=== PATIENT | female | born 1960 | race Caucasian/White ===

== ENCOUNTER 2017-09-14 18:00 | Emergency (ER) | payer BC ==
[2017-09-14 18:26] VITALS: TEMP 97.9; BMI 42.9
--- NOTE | 2017-09-14 18:27 | PDOC ---
History of Present Illness - General Chief Complaint: Syncope/Near Syncope Stated Complaint: Syncope/Near Syncope Time Seen by Provider: 09/14/17 18:16 - History of Present Illness Initial Comments: 09/14/17 18:18 57 yo F with no significant pmh who presents with syncope. Past History - Past Medical History Allergies/Adverse Reactions: Allergies Allergy/AdvReac Type Severity Reaction Status Date / Time acetaminophen [From Midol] AdvReac Nausea Verified 02/22/16 02:26 erythromycin base AdvReac Nausea Verified 02/22/16 02:26 [From E-Mycin] pamabrom [From Midol] AdvReac Nausea Verified 02/22/16 02:26 Home Medications: Ambulatory Orders Fexofenadine HCl [Earnestine] 180 mg PO DAILY 10/16/15 - Surgical History Cholecystectomy: Yes - Suicide/Smoking/Psychosocial Hx Smoking Status: No Smoking History: Never smoked Number of Cigarettes Smoked Daily: 0 Hx Alcohol Use: No Drug/Substance Use Hx: No Substance Use Type: None *DC/Admit/Observation/Transfer - Referrals Referrals: Yasmine Soria MD [Primary Care Provider] - - Patient Instructions - Post Discharge Activity
[2017-09-14] MEDS ORDERED: SODIUM CHLORIDE 1,000 ML IV STA ×2 (18:41)
[2017-09-14] MEDS ORDERED: ONDANSETRON 4 MG/2 ML VIAL IVPUSH ONE ×2 (18:42→21:05)
[2017-09-14] MEDS ORDERED: ONDANSETRON 4 MG/2 ML VIAL ONE ×2 (18:43→21:20)
[2017-09-14] MEDS ORDERED: FAMOTIDINE 20 MG/50 ML IVPB 20 MG/50 ML MG IVPB ONE (18:43)
[2017-09-14] MEDS ORDERED: FAMOTIDINE IV 20 MG/12 ML VIAL IVPUSH SCH (18:45)
--- NOTE | 2017-09-14 18:58 | PDOC ---
History of Present Illness - History of Present Illness Initial Comments: 09/14/17 18:56 Ms. Marroquin is a 57 yo female w/ pmh of hypotension and previous visit for syncope after viral illness course who presents following syncopal episode today after 2 days of nausea, vomiting, and diarrhea. Ms. Marroquin denies any bloody vomit or diarrhea and has otherwise been feeling ok. The patient denies chest pain, shortness of breath, headache and dizziness. Denies fever, chills, nausea, vomit, diarrhea and constipation. Denies dysuria, frequency, urgency and hematuria. Allergies: Acetaminophen, Erythromycin <Polo Black - Last Filed: 09/14/17 21:08> <Carmelo Molina - Last Filed: 09/14/17 21:25> - General Chief Complaint: Syncope/Near Syncope Stated Complaint: Syncope/Near Syncope Time Seen by Provider: 09/14/17 18:16 Past History - Past Medical History COPD: No - Surgical History Cholecystectomy: Yes - Suicide/Smoking/Psychosocial Hx Smoking Status: No Smoking History: Never smoked Have you smoked in the past 12 months: No Number of Cigarettes Smoked Daily: 0 Information on smoking cessation initiated: No Hx Alcohol Use: No Drug/Substance Use Hx: No Substance Use Type: None <Polo Black - Last Filed: 09/14/17 21:08> <Carmelo Molina - Last Filed: 09/14/17 21:25> - Past Medical History Allergies/Adverse Reactions: Allergies Allergy/AdvReac Type Severity Reaction Status Date / Time acetaminophen [From Midol] AdvReac Nausea Verified 09/14/17 18:36 erythromycin base AdvReac Nausea Verified 09/14/17 18:36 [From E-Mycin] pamabrom [From Midol] AdvReac Nausea Verified 09/14/17 18:36 Home Medications: Ambulatory Orders Fexofenadine HCl [Earnestine] 180 mg PO DAILY 10/16/15 Ondansetron [Ondansetron Odt] 8 mg PO Q6H PRN #8 tab.rapdis 09/14/17 Review of Systems - Review of Systems Comments:: 09/14/17 19:17 GENERAL/CONSTITUTIONAL: +Subjective chills. No weakness. HEAD, EYES, EARS, NOSE AND THROAT: No change in vision. No ear pain or discharge. No sore throat. CARDIOVASCULAR: No chest pain or shortness of breath RESPIRATORY: No cough, wheezing, or hemoptysis. GASTROINTESTINAL: +nausea with NBNB vomit, diarrhea. No constipation. GENITOURINARY: No dysuria, frequency, or change in urination. MUSCULOSKELETAL: No joint or muscle swelling or pain. No neck or back pain. SKIN: No rash NEUROLOGIC: No headache, vertigo, loss of consciousness, or change in strength/ sensation. ENDOCRINE: No increased thirst. No abnormal weight change HEMATOLOGIC/LYMPHATIC: No anemia, easy bleeding, or history of blood clots. ALLERGIC/IMMUNOLOGIC: No hives or skin allergy. <Polo Black - Last Filed: 09/14/17 21:08> *Physical Exam - Vital Signs Last Vital Signs Temp Pulse Resp BP Pulse Ox 97.9 F 84 18 137/85 99 09/14/17 18:14 09/14/17 18:14 09/14/17 18:14 09/14/17 18:14 09/14/17 18:14 - Physical Exam Comments: 09/14/17 21:08 GENERAL: Awake, alert, and fully oriented, in no acute distress HEAD: No signs of trauma, normocephalic, atraumatic EYES: PERRLA, EOMI, sclera anicteric, conjunctiva clear ENT: Auricles normal inspection, hearing grossly normal, nares patent, oropharynx clear without exudates. Moist mucosa NECK: Normal ROM, supple, no lymphadenopathy, JVD, or masses LUNGS: No distress, speaks full sentences, clear to auscultation bilaterally HEART: Regular rate and rhythm, normal S1 and S2, no murmurs, rubs or gallops, peripheral pulses normal and equal bilaterally. ABDOMEN: +Patient diffusely tender to palpation. Soft, normoactive bowel sounds. No guarding, no rebound. No masses EXTREMITIES: Normal inspection, Normal range of motion, no edema. No clubbing or cyanosis. NEUROLOGICAL: Cranial nerves II through XII grossly intact. Normal speech, normal gait, no focal sensorimotor deficits SKIN: Warm, Dry, normal turgor, no rashes or lesions noted. <Polo Black - Last Filed: 09/14/17 21:08> - Vital Signs Last Vital Signs Temp Pulse Resp BP Pulse Ox 97.9 F 84 18 137/85 99 09/14/17 18:14 09/14/17 18:14 09/14/17 18:14 09/14/17 18:14 09/14/17 18:14 <Carmelo Molina - Last Filed: 09/14/17 21:25> ED Treatment Course - LABORATORY CBC & Chemistry Diagram: 09/14/17 18:50 09/14/17 18:50 <Polo Black - Last Filed: 09/14/17 21:08> - LABORATORY CBC & Chemistry Diagram: 09/14/17 18:50 09/14/17 18:50 - ADDITIONAL ORDERS Additional order review: Laboratory Results 09/14/17 09/14/17 09/14/17 18:50 18:50 18:50 Sodium 140 Potassium 4.1 Chloride 106 Carbon Dioxide 26 Anion Gap 8 BUN 16 Creatinine 0.8 Creat Clearance w eGFR > 60 Random Glucose 126 H Lactic Acid 1.2 Calcium 8.8 Total Bilirubin 1.7 H D AST 47 H D ALT 87 H D Alkaline Phosphatase 81 D Creatine Kinase 135 Troponin I < 0.02 Total Protein 7.9 Albumin 3.8 09/14/17 18:50 RBC 5.24 H MCV 89.1 MCHC 33.5 RDW 13.0 MPV 8.7 Neutrophils % 81.4 Lymphocytes % 10.6 Monocytes % 6.8 Eosinophils % 0.7 Basophils % 0.5 - Medications Given in the ED: ED Medications Discontinued Medications Generic Name Dose Route Start Last Admin Trade Name Freq PRN Reason Stop Dose Admin Sodium Chloride 1,000 mls @ 1,000 mls/hr 09/14/17 18:41 09/14/17 19:03 Normal Saline - IV 09/14/17 19:40 1,000 mls/hr ASDIR STA Administration Sodium Chloride 1,000 mls @ 1,000 mls/hr 09/14/17 18:41 09/14/17 19:03 Normal Saline - IV 09/14/17 19:40 1,000 mls/hr ASDIR STA Administration Ondansetron HCl 8 mg 09/14/17 18:42 09/14/17 19:03 Zofran Injection IVPUSH 09/14/17 18:43 8 mg ONCE ONE Administration Ondansetron HCl 4 mg 09/14/17 21:05 09/14/17 21:23 Zofran Injection IVPUSH 09/14/17 21:06 4 mg ONCE ONE Administration <Carmelo Molina - Last Filed: 09/14/17 21:25> Medical Decision Making - Medical Decision Making 09/14/17 21:09 Patient presented post syncopal episode complaining of nausea and vomiting. Suspect viral illness as etiology of n/v/d which in turn was origin of syncopal episode. Patient given zofran with resolution of nausea and abdominal pain. Labs grossly unconcerning - patient appears to be volume depleted. Patient received 2 liters of NS and was then able to ambulate and successfully pass PO challenge. Will send patient home with Rx for zofran for any continued nausea. Discussed patient returning if any increased n/v/d or unable to successfully keep food / liquids down. Patient verbalized understanding. 09/14/17 21:12 <Polo Black - Last Filed: 09/14/17 21:08> *DC/Admit/Observation/Transfer <Polo Black - Last Filed: 09/14/17 21:08> <Carmelo Molina - Last Filed: 09/14/17 21:25> Diagnosis at time of Disposition: Dehydration, Viral gastroenteritis - Discharge Dispostion Disposition: HOME - Prescriptions Prescriptions: Ondansetron [Ondansetron Odt] 8 mg PO Q6H PRN #8 tab.rapdis PRN Reason: Nausea And/Or Vomiting - Referrals Referrals: Yasmine Soria MD [Primary Care Provider] - - Patient Instructions Printed Discharge Instructions: DI for Syncope in Adults (Fainting), DI for Viral Gastroenteritis -- Adult - Post Discharge Activity Forms/Work/School Notes: Back to Work
[2017-09-14 19:01] LABS: BASOPHIL 0.5 % (0-2.0); EOSINOPHIL 0.7 % (0-4.5); MCH 29.8 pg (25.7-33.7); MCHC 33.5 g/dl (32.0-36.0); MEAN CELL VOLUME 89.1 fl (80-96); MEAN PLT VOLUME 8.7 fl (7.5-11.1); NEUTROPHILS 81.4 % (42.8-82.8); PLATELET COUNT 259 K/MM3 (134-434); WHITE BLOOD COUNT 11.3 K/mm3 (4.0-10.0)
[2017-09-14 19:32] LABS: ALBUMIN 3.8 g/dl (3.4-5.0); ALK PHOS 81 U/L (45-117); ANION GAP 8 (8-16); BILIRUBIN,TOTAL 1.7 mg/dL (0.2-1.0); CALCIUM 8.8 mg/dL (8.5-10.1); CO2 26 mmol/L (21-32); CREATININE 0.8 mg/dL (0.55-1.02); GLUCOSE,RANDOM 126 mg/dL (74-106); SGPT/ALT 87 U/L (12-78); TOT PROT 7.9 g/dl (6.4-8.2)
[2017-09-14 19:34] LABS: SGOT/AST 47 U/L (15-37)
[2017-09-14 19:43] LABS: TROPONIN I < 0.02 ng/ml (0.00-0.05)
[2017-09-14 19:45] LABS: CPK 135 IU/L (26-192)
--- NOTE | 2017-09-14 20:47 | PDOC ---
Attending Attestation - Resident Resident Name: Polo Black - ED Attending Attestation I have performed the following: I have examined & evaluated the patient, The case was reviewed & discussed with the resident, I agree w/resident's findings & plan, Exceptions are as noted - HPI HPI: 09/14/17 20:42 57 year old female with no PMH who presents to the emergency department s/p syncopal episode earlier today and 2 days of nausea, vomiting, and diarrhea. Pt states that she has had sick contacts at home with similar symptoms. She endorses multiple episodes of nonbilious, nonbloody vomiting, as well as several episodes of watery brown stool. Denies F/C. She states that today, she fainted while vomiting. Denies headstrike. Was seated at the time and did not fall to the floor. She denies having any chest pain, shortness of breath, or palpitations prior to or after the episode. Currently she reports that she feels weak but otherwise denies any complaints. - Physicial Exam PE: 09/14/17 20:54 "GENERAL: Awake, alert, and fully oriented, in no acute distress HEAD: No signs of trauma EYES: PERRLA, EOMI, sclera anicteric, conjunctiva clear ENT: Auricles normal inspection, hearing grossly normal, nares patent, oropharynx clear without exudates. Moist mucosa NECK: Nontender, no stepoffs, Normal ROM, supple, no lymphadenopathy, JVD, or masses LUNGS: Breath sounds equal, clear to auscultation bilaterally. No wheezes, and no crackles HEART: Regular rate and rhythm, normal S1 and S2, no murmurs, rubs or gallops ABDOMEN: Soft, nontender, normoactive bowel sounds. No guarding, no rebound. No masses EXTREMITIES: Normal range of motion, no edema. No clubbing or cyanosis. No cords, erythema, or tenderness NEUROLOGICAL: Cranial nerves II through XII intact. 5/5 strength and sensation in all extremities, Normal speech, normal gait SKIN: Warm, Dry, normal turgor, no rashes or lesions noted. " - Medical Decision Making 09/14/17 20:54 57 F with N/V/D and syncopal episode. Syncope likely vasovagal in the context of vomiting. Pt with normal vitals. Normal EKG. Pt may also be dehydrated due to volume losses from vomiting and diarrhea. - Labs - IVF, GI cocktail - Reassess 09/14/17 21:17 CBC,CMP WBC 11.3 K/mm3 (4.0-10.0) H D 09/14/17 18:50 RBC 5.24 M/mm3 (3.60-5.2) H 09/14/17 18:50 Hgb 15.6 GM/dL (10.7-15.3) H 09/14/17 18:50 Hct 46.7 % (32.4-45.2) H 09/14/17 18:50 MCV 89.1 fl (80-96) 09/14/17 18:50 MCH 29.8 pg (25.7-33.7) 09/14/17 18:50 MCHC 33.5 g/dl (32.0-36.0) 09/14/17 18:50 RDW 13.0 % (11.6-15.6) 09/14/17 18:50 Plt Count 259 K/MM3 (134-434) D 09/14/17 18:50 MPV 8.7 fl (7.5-11.1) 09/14/17 18:50 Neutrophils % 81.4 % (42.8-82.8) 09/14/17 18:50 Lymphocytes % 10.6 % (8-40) 09/14/17 18:50 Monocytes % 6.8 % (3.8-10.2) 09/14/17 18:50 Eosinophils % 0.7 % (0-4.5) 09/14/17 18:50 Basophils % 0.5 % (0-2.0) 09/14/17 18:50 Sodium 140 mmol/L (136-145) 09/14/17 18:50 Potassium 4.1 mmol/L (3.5-5.1) 09/14/17 18:50 Chloride 106 mmol/L (98-107) 09/14/17 18:50 Carbon Dioxide 26 mmol/L (21-32) 09/14/17 18:50 Anion Gap 8 (8-16) 09/14/17 18:50 BUN 16 mg/dL (7-18) 09/14/17 18:50 Creatinine 0.8 mg/dL (0.55-1.02) 09/14/17 18:50 Creat Clearance w eGFR > 60 (>60) 09/14/17 18:50 Random Glucose 126 mg/dL (74-106) H 09/14/17 18:50 Lactic Acid 1.2 mmol/L (0.4-2.0) 09/14/17 18:50 Calcium 8.8 mg/dL (8.5-10.1) 09/14/17 18:50 Total Bilirubin 1.7 mg/dL (0.2-1.0) H D 09/14/17 18:50 AST 47 U/L (15-37) H D 09/14/17 18:50 ALT 87 U/L (12-78) H D 09/14/17 18:50 Alkaline Phosphatase 81 U/L (45-117) D 09/14/17 18:50 Creatine Kinase 135 IU/L (26-192) 09/14/17 18:50 Troponin I < 0.02 ng/ml (0.00-0.05) 09/14/17 18:50 Total Protein 7.9 g/dl (6.4-8.2) 09/14/17 18:50 Albumin 3.8 g/dl (3.4-5.0) 09/14/17 18:50 Pt reassessed - now tolerating PO without vomiting. Abdominal exam benign. Vitals normal. Pt has been on monitor for 3 hours without any events. Pt with no additional syncopal episodes in ER. Clinically stable for DC at this time. Heart Score/ECG Review - ECG Impressions Comment:: 09/14/17 20:55 NSR, no KP/STDs, no TWIs, ND 202, QTc 437, slight L axis deviation
[2017-09-14 21:26] VITALS: BP 121/80; PULSE 80
--- NOTE | 2017-09-15 10:06 | EKG ---
Test Reason : Blood Pressure : / mmHG Vent. Rate : 085 BPM Atrial Rate : 085 BPM P-R Int : 202 ms QRS Dur : 090 ms QT Int : 368 ms P-R-T Axes : 039 -28 029 degrees QTc Int : 437 ms POOR DATA QUALITY, INTERPRETATION MAY BE ADVERSELY AFFECTED NORMAL SINUS RHYTHM MODERATE VOLTAGE CRITERIA FOR LVH, MAY BE NORMAL VARIANT POOR R WAVE PROGRESSION WHEN COMPARED WITH ECG OF 22-FEB-2016 02:50, NO SIGNIFICANT CHANGE WAS FOUND Confirmed by RUSTAM ARCOS MD ([id number]) on 09/15/2017 10:06:00 AM Referred By: Confirmed By:RUSTAM ARCOS MD
== END 2017-09-14 21:34 | disposition home or self-care (01) ==
LOC: JER 18:00
PROC: 3E033GC Introduction of Other Therapeutic Substance into Peripheral Vein, Percutaneous Approach (ICD-10-PCS; principal; 2017-09-14)
PROC: 3E033GC Introduction of Other Therapeutic Substance into Peripheral Vein, Percutaneous Approach (ICD-10-PCS; 2017-09-14)
DX: A08.4 Viral intestinal infection, unspecified (principal); B97.89 Other viral agents as the cause of diseases classified elsewhere; E86.0 Dehydration
CPT/HCPCS: 36415; 80053; 82550; 83605; 84484; 85025; 93005; 93010; 99285-25

== ENCOUNTER 2017-11-10 07:01 | Emergency (ER) | payer BC ==
[2017-11-10 07:18] VITALS: BMI 42.9
--- NOTE | 2017-11-10 07:46 | PDOC ---
History of Present Illness - General Chief Complaint: Syncope/Near Syncope Stated Complaint: SYNCOPY - History of Present Illness Initial Comments: 57 year old female with history of seasonal allergies presenting with nausea, vomiting, and diarrhea since early this AM. States that she had some severe belching at approximately 2 AM directly after which she began experiencing bilious, non-bloody vomiting (x2), and dark brown but non-bloody diarrhea (x6). States that this has happened a few times since August and she recently underwent an Endoscopy by Dr. Gupta at [facility] on 11/07/17 (3 days prior) which was significant for a small esophageal polyp that was biopsied and GERD for which she was started on Nexium. She does admit that she has a very sensitive stomach and does not eat spicy food because of that. She had a cholecystectomy 21 ears ago and two NSVDs. Her last colonoscopy was in 2011 which was fine. Denies SOB, chest pain, urinary symptoms, fevers, chills, or focal neurological symptoms. She has syncopized under similar circumstances in the [facility] but has not syncopized today. Denies new meds since the start of these symptoms, EtoH, smoking, or other drug use. 11/10/17 08:17 Past History - Past Medical History Allergies/Adverse Reactions: Allergies Allergy/AdvReac Type Severity Reaction Status Date / Time acetaminophen [From Midol] AdvReac Nausea Verified 11/10/17 07:14 erythromycin base AdvReac Nausea Verified 11/10/17 07:14 [From E-Mycin] pamabrom [From Midol] AdvReac Nausea Verified 11/10/17 07:14 Home Medications: Ambulatory Orders Fexofenadine HCl [Earnestine] 180 mg PO DAILY 10/16/15 Ondansetron [Zofran *Odt*] 8 mg PO Q6H PRN #20 tab.rapdis 11/10/17 Cardiac Disorders: (syncope) COPD: No - Surgical History Cholecystectomy: Yes - Suicide/Smoking/Psychosocial Hx Smoking Status: No Smoking History: Never smoked Have you smoked in the past 12 months: No Number of Cigarettes Smoked Daily: 0 Information on smoking cessation initiated: No Hx Alcohol Use: No Drug/Substance Use Hx: No Substance Use Type: None Review of Systems - Review of Systems Constitutional: No: Chills, Diaphoresis, Fever HEENTM: No: Blurred Vision Respiratory: No: Cough, Shortness of Breath, Stridor, Wheezing, Productive cough Cardiac (ROS): Yes: Lightheadedness, Syncope. No: Irregular Heart Rate, Palpitations ABD/GI: Yes: Diarrhea, Nausea, Vomiting. No: Blood Streaked Bowels : No: Burning, Dysuria, Discharge, Hematuria Musculoskeletal: No: Back Pain, Joint Pain Integumentary: No: Bruising, Change in Color, Lesions *Physical Exam - Vital Signs Last Vital Signs Temp Pulse Resp BP Pulse Ox 97.8 F 69 20 150/77 99 11/10/17 07:15 11/10/17 07:15 11/10/17 07:15 11/10/17 07:15 11/10/17 07:15 - Physical Exam General Appearance: Yes: Nourished, Appropriately Dressed, Apparent Distress HEENT: positive: EOMI, JOSE DAVID, Normal ENT Inspection, Normal Voice Neck: positive: Trachea midline, Normal Thyroid, Supple. negative: Tender, Rigid Respiratory/Chest: positive: Lungs Clear, Normal Breath Sounds. negative: Chest Tender, Respiratory Distress, Accessory Muscle Use Cardiovascular: positive: Regular Rhythm, Regular Rate Gastrointestinal/Abdominal: positive: Normal Bowel Sounds, Tender (diffuse upper abdominal trenderness but epigastric > the rest), Flat, Soft Musculoskeletal: positive: Normal Inspection Extremity: positive: Normal Capillary Refill, Normal Inspection, Normal Range of Motion. negative: Tender Integumentary: positive: Normal Color, Dry, Warm Neurologic: positive: Fully Oriented, Alert, Normal Mood/Affect, Normal Response , Motor Strength 5/5 ED Treatment Course - LABORATORY CBC & Chemistry Diagram: 11/10/17 08:43 11/10/17 11:15 Medical Decision Making - Medical Decision Making 57 year old female with recent endoscopy (significant for one polyp and GERD) with multiple ED presentations for nausea, vomiting, and diarrhea presenting again with this aforementioned symptom triad. The etiology for this presentation is unclear as she has had a clean colonoscopy in 2012 a recent endoscopy that wasn't significant for any obvious causative agent and she does not have cardiac risk factors. She has not had a CT of her abdomen. Given negative scopes and good health otherwise, this may be a Gi sensitivity reaction vs. IBS vs. IBD. She did not syncopize this time but she has in the past while coughing/ wretching which paints a picture of a vasovagal syncope in the setting of dehydration typically. Will get CBC, CMP, lipase, EKG, give 1L NS , give zofran, and give pepcid. 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 11/10/17 08:52 CBC WNL, CMP hemolyzed, abdominal tenderness improved but now focal in LLQ. Will CT scan abd/pelvis with IV contrast pending CMP lab results. 11/10/17 11:28 CT scan negative for any pathology. Spoke to Dr. Gupta's office x 2 without response so will DC patient with PMD follow up within 2-3 days, GI follow up, and cards follow up. We do maintain that her previous syncopal episodes were due to vasovagal syncope in the setting of valsalva with dehydration during cough/ vomiting. However, she deserves cards follow up for this. The etiology of her GI symptoms however is unclear and needs to be further evaluated by GI ( IBS vs. IBD). 11/10/17 14:32 *DC/Admit/Observation/Transfer Diagnosis at time of Disposition: Gastroenteritis - Discharge Dispostion Disposition: HOME Condition at time of disposition: Improved Admit: No - Prescriptions - Referrals - Patient Instructions - Post Discharge Activity
[2017-11-10] MEDS ORDERED: SODIUM CHLORIDE 0.9% 1000 ML INFUS.BAG IV ONE (08:04)
[2017-11-10] MEDS ORDERED: ONDANSETRON 4 MG/2 ML VIAL IVPUSH ONE (08:05)
--- NOTE | 2017-11-10 08:06 | PDOC ---
Attending Attestation - HPI HPI: 11/10/17 09:36 The patient is a 57 year old female, with a significant past medical history of GERD (s/p endoscopy [address] Carbajal), who presents to the emergency department with severe belching, nausea, vomiting, diarrhea, and abdominal pain. She states she has been experiencing these symptoms intermittently since August 2017. She reports the nausea, vomiting, and diarrhea came on at about 2AM this morning. She reports about 2 episodes of dark green emesis. She reports a few episodes of watery non bloody or tarry diarrhea. She denies hematemesis. She reports the abdominal pain as diffuse cramping, but states it's worse in the epigastric area. She states she has fainted in the past from her current symptoms. She has had these symptoms 4 times in the past and these symptoms are why she had an endoscopy 4 days ago. She denies syncope today, but reportedly feels lightheaded which prompted her ED visit this morning. She denies chest pain, shortness of breath, headache and dizziness. She denies fever, chills, and constipation. She denies dysuria, frequency, urgency and hematuria. Allergies: Acetaminophen, Erythromycin Past surgical history: cholecystectomy PCP: Dr. Drew Soria - Physicial Exam PE: 11/10/17 09:36 GENERAL: Awake, alert, and fully oriented, in no acute distress HEAD: No signs of trauma EYES: PERRLA, EOMI, sclera anicteric, conjunctiva clear ENT: Auricles normal inspection, hearing grossly normal, nares patent, oropharynx clear without exudates. dry MM NECK: Normal ROM, supple, no lymphadenopathy, JVD, or masses LUNGS: Breath sounds equal, clear to auscultation bilaterally. No wheezes, and no crackles HEART: Regular rate and rhythm, normal S1 and S2, no murmurs, rubs or gallops ABDOMEN: (+) diffuse tenderness most prominent to epigastric region Soft, normoactive bowel sounds. No guarding, no rebound. No masses EXTREMITIES: Normal range of motion, no edema. No clubbing or cyanosis. No cords, erythema, or tenderness BACK: No midline spinal tenderness in cervical/thoracic/lumbar region NEUROLOGICAL: Normal speech, cranial nerves intact, negative pronator drift, 5/ 5 strength in all 4 extremities, normal sensation to light touch in all 4 extremities, normal cerebellar exam, normal gait, normal reflexes and tone SKIN: Warm, Dry, normal turgor, no rashes or lesions noted. - Medical Decision Making 11/10/17 08:59 Documentation prepared by Zuleima Olmos, acting as certified ophthalmic medical technician for Brenna Morrissey MD <Zuleima Olmos - Last Filed: 11/10/17 09:36> - Resident Resident Name: Sonia Ruvalcaba - ED Attending Attestation I have performed the following: I have examined & evaluated the patient, The case was reviewed & discussed with the resident, I agree w/resident's findings & plan, Exceptions are as noted - Medical Decision Making 11/10/17 09:05 57-year-old female with a history of episodic nausea, vomiting, and diarrhea, currently being worked up gastroenterology presents with nausea, vomiting, diarrhea. Vitals are unremarkable. Exam remarkable for epigastric tenderness to palpation and dry mucous membranes. Given recent endoscopy 4 days ago we'll obtain an upright x-ray to evaluate for pneumoperitoneum or dilated bowel loops given bilious emesis. We'll also obtain labs and basic blood work and give antibiotics for nausea control. Will also rehydrate patient with fluids and reassess. Laboratory Tests 11/10/17 11/10/17 11/10/17 08:43 08:43 08:43 WBC 12.6 H RBC 5.15 Hgb 15.0 Hct 46.2 H MCV 89.7 MCH 29.0 MCHC 32.4 RDW 13.5 Plt Count 243 MPV 8.4 Neutrophils % 73.7 Lymphocytes % 17.4 D Monocytes % 6.8 Eosinophils % 1.4 D Basophils % 0.7 Sodium Cancelled Cancelled Potassium Cancelled Cancelled Chloride Cancelled Cancelled Carbon Dioxide Cancelled Cancelled Anion Gap Cancelled Cancelled BUN Cancelled Cancelled Creatinine Cancelled Cancelled Creat Clearance w eGFR Cancelled Cancelled Random Glucose Cancelled Cancelled Calcium Cancelled Cancelled Total Bilirubin Cancelled Cancelled AST Cancelled Cancelled ALT Cancelled Cancelled Alkaline Phosphatase Cancelled Cancelled Total Protein Cancelled Cancelled Albumin Cancelled Cancelled Lipase Cancelled Urine Color Urine Appearance Urine pH Ur Specific Fithian Urine Protein Urine Glucose (UA) Urine Ketones Urine Blood Urine Nitrite Urine Bilirubin Urine Urobilinogen Ur Leukocyte Esterase 11/10/17 10:13 WBC RBC Hgb Hct MCV MCH MCHC RDW Plt Count MPV Neutrophils % Lymphocytes % Monocytes % Eosinophils % Basophils % Sodium Potassium Chloride Carbon Dioxide Anion Gap BUN Creatinine Creat Clearance w eGFR Random Glucose Calcium Total Bilirubin AST ALT Alkaline Phosphatase Total Protein Albumin Lipase Urine Color Ltyellow Urine Appearance Clear Urine pH 6.0 Ur Specific Fithian 1.015 Urine Protein Negative Urine Glucose (UA) Negative Urine Ketones Negative Urine Blood 1+ H Urine Nitrite Negative Urine Bilirubin Negative Urine Urobilinogen Negative Ur Leukocyte Esterase Negative 11/10/17 11:34 Nausea improved, however pain has migrated to LLQ. +leukocytosis to 12.6. to Will obtain CT to eval for diverticulitis or renal colic. Pt has been short stayed. 11/10/17 15:19 CT scan negative for acute pathology. Patient reports her pain has completely resolved. UA with blood but otherwise no sign of infection. 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 Gupta who recommends that she continue Nexium. Discussed all results with patient including conversation with Dr. Gupta. Patient will follow-up with Dr. Gupta and PMD within the next week. Prescribed Zofran in case nausea returns. I discussed the physical exam findings, ancillary test results and final diagnoses with the patient. I answered all of the patient's questions. The patient was satisfied with the care received and felt comfortable with the discharge plan and treatment plan. The patient will call their primary care physician within 24 hours to arrange follow-up and will return to the Emergency Department with any new, persistent or worsening symptoms. <Brenna Morrissey - Last Filed: 11/10/17 15:20>
[2017-11-10] MEDS ORDERED: MAG HYDROX/AL HYDROX/SIMETH 30 ML UNIT-DOSE CUP PO ONE (08:17)
[2017-11-10] MEDS ORDERED: ONDANSETRON 4 MG/2 ML VIAL ONE (08:44)
[2017-11-10] MEDS ORDERED: MAG HYDROX/AL HYDROX/SIMETH 30 ML UNIT-DOSE CUP ONE (08:44)
[2017-11-10 09:24] LABS: BASO % 0.7 % (0-2.0); EOS % 1.4 % (0-4.5); HEMATOCRIT 46.2 % (32.4-45.2); LYMPH % 17.4 % (8-40); MCHC 32.4 g/dl (32.0-36.0); MEAN CELL VOLUME 89.7 fl (80-96); MEAN PLT VOLUME 8.4 fl (7.5-11.1); MONO % 6.8 % (3.8-10.2); NEUT % 73.7 % (42.8-82.8); PLATELET COUNT 243 K/MM3 (134-434); RBC 5.15 M/mm3 (3.60-5.2); RDW 13.5 % (11.6-15.6); WHITE BLOOD COUNT 12.6 K/mm3 (4.0-10.0)
--- NOTE | 2017-11-10 09:44 | EKG ---
Test Reason : Blood Pressure : / mmHG Vent. Rate : 065 BPM Atrial Rate : 065 BPM P-R Int : 202 ms QRS Dur : 092 ms QT Int : 436 ms P-R-T Axes : 039 -12 014 degrees QTc Int : 453 ms NORMAL SINUS RHYTHM POOR R WAVE PROGRESSION WHEN COMPARED WITH ECG OF 14-SEP-2017 18:26, NO SIGNIFICANT CHANGE WAS FOUND Confirmed by RUSTAM ARCOS MD ([id number]) on 11/10/2017 9:44:04 AM Referred By: Confirmed By:RUSTAM ARCOS MD
[2017-11-10 10:37] LABS: URINE APPEARANCE CLEAR; URINE BILIRUBIN NEGATIVE (NEGATIVE); URINE BLOOD 1+ (NEGATIVE); URINE COLOR LTYELLOW; URINE GLUCOSE (UA) NEGATIVE (NEGATIVE); URINE KETONE NEGATIVE (NEGATIVE); URINE LEUK ESTERASE NEGATIVE (NEGATIVE); URINE NITRITE NEGATIVE (NEGATIVE); URINE PROTEIN NEGATIVE (NEGATIVE); URINE UROBILINOGEN NEGATIVE mg/dL (0.2-1.0)
[2017-11-10] MEDS ORDERED: SODIUM CHLORIDE 0.9% 500 ML INFUS.BAG IV ONE (11:00)
[2017-11-10 12:14] LABS: ALBUMIN 3.6 g/dl (3.4-5.0); ANION GAP 8 (8-16); BLOOD UREA NITROGEN 17 mg/dL (7-18); CALCIUM 8.2 mg/dL (8.5-10.1); CHLORIDE 105 mmol/L (98-107); CO2 29 mmol/L (21-32); CREATININE 0.7 mg/dL (0.55-1.02); GLUCOSE,RANDOM 84 mg/dL (74-106); LIPASE 148 U/L (73-393); POTASSIUM 4.1 mmol/L (3.5-5.1); SGOT/AST 38 U/L (15-37); SGPT/ALT 77 U/L (12-78); SODIUM 142 mmol/L (136-145)
[2017-11-10 12:18] LABS: ALK PHOS 76 U/L (45-117); BILIRUBIN,TOTAL 1.1 mg/dL (0.2-1.0); TOT PROT 7.6 g/dl (6.4-8.2)
[2017-11-10 13:04] LABS: URINE MUCUS RARE
[2017-11-10 15:30] VITALS: BP 144/84; PULSE 67; TEMP 98.6
== END 2017-11-10 15:26 | disposition home or self-care (01) ==
LOC: JER 07:01 → UNDOADMOB 11:33 → JERBED 11:33
PROC: 3E033GC Introduction of Other Therapeutic Substance into Peripheral Vein, Percutaneous Approach (ICD-10-PCS; principal; 2017-11-10)
PROC: 3E0337Z Introduction of Electrolytic and Water Balance Substance into Peripheral Vein, Percutaneous Approach (ICD-10-PCS; 2017-11-10)
DX: K52.9 Noninfective gastroenteritis and colitis, unspecified (principal); K21.9 Gastro-esophageal reflux disease without esophagitis
CPT/HCPCS: 36415; 74177-TC; 80053; 81003; 81015; 83690; 84484; 85025; 87086; 93005; 93010; 99285-25